=== PATIENT | female | born 1990 | race Caucasian/White ===

== ENCOUNTER → 2018-11-25 | Outpatient (CLI) | payer MEDICAID ==
--- NOTE | 2018-11-25 14:46 | Diagnostic Imaging Report ---
PROCEDURE: MRI lumbar spine. TECHNIQUE: Multiplanar, multisequence MRI of the lumbar spine was performed without contrast. INDICATION: Low back pain and right leg pain. COMPARISON: No prior studies are available for comparison. FINDINGS: There is straightening of the normal lumbar lordotic curvature. Vertebral body heights are maintained. No acute compression fracture is seen. No geographic marrow lesion is identified. There is loss of height and signal intensity to the L4-L5 disc, compatible with degenerative disc disease. Remaining discs show normal height and hydration. The conus is unremarkable at the L1 level. T12-L1: Central canal and neuroforamina are widely patent. L1-L2: Central canal and neuroforamina are widely patent. L2-L3: Central canal and neuroforamina are widely patent. L3-L4: Central canal and neuroforamina are widely patent. L4-L5: There is a large wide-based disc protrusion in the midline and right paramidline location indenting the ventral thecal sac and producing significant narrowing of the central canal. There is also significant bilateral lateral recess stenosis. The disc measures 16 mm transverse x 6 mm AP x 11 mm cephalocaudal. Only mild bilateral neuroforaminal narrowing is seen. L5-S1: No significant central canal or neuroforaminal stenosis is identified. Paraspinous tissues are unremarkable. IMPRESSION: Large wide-based disc protrusion/extrusion at L4-L5 level producing significant central canal and bilateral lateral recess stenosis. Dictated by: Dictated on workstation # [id number]
== END ==
LOC: RAD 13:14
PROVIDERS: ATTEND Nurse Practitioner Family
DX: M48.061 Spinal stenosis, lumbar region without neurogenic claudication (principal); M54.41 Lumbago with sciatica, right side
CPT/HCPCS: 72148